=== PATIENT | male | born 1995 | race African-American/Black ===

== ENCOUNTER 2019-06-20 21:02 | Emergency (ER) | payer OTHER ==
[~2019-06-20] VITALS: Ht 182.9 cm; Wt 81.7 kg
[~2019-06-20 21:02] MED LIST: COLACE100 MG PO; NOHOMEMEDICATIONS; NORCO 5-325 TA1 EACH PO; ONDANSETRON HCL4 M2 PO
[2019-06-20] MEDS ORDERED: MOBIC15 MG PO (21:57)
[2019-06-20 22:00] VITALS: BP 138/72
== END 2019-06-20 22:10 | disposition home or self-care (01) ==
LOC: ER 21:02
DX: S83.8X1A Sprain of other specified parts of right knee, initial encounter (principal); Z90.49 Acquired absence of other specified parts of digestive tract; X50.1XXA Overexertion from prolonged static or awkward postures, initial encounter; Y93.89 Activity, other specified; Y92.098 Other place in other non-institutional residence as the place of occurrence of the external cause; Y99.8 Other external cause status